=== PATIENT | female | born 1990 | race Caucasian/White ===

== ENCOUNTER 2017-10-21 23:42 | Inpatient (IN) | payer MEDICAID, OTHER ==
[2017-10-21] MEDS ORDERED: Lactated Ringer's 1,000 ML IV SCH (23:45)
[2017-10-21 23:58] VITALS: BMI 36.0
[2017-10-22] MEDS: Lactated Ringer's 1,000 ML IV SCH ×2 (00:14→00:50)
[2017-10-22] MEDS ORDERED: Oxytocin 30 units/LR 500ML 30 UNITS/500 ML BAG IV ONE (00:22)
[2017-10-22] MEDS ORDERED: Oxytocin 20 units in LR 0 ML IV ONE (00:23)
[2017-10-22 00:24] LABS: BASO % 0.1 % (0.0-2.0); EOS % 0.4 % (0.0-4.0); HEMOGLOBIN 11.6 g/dL (12.0-16.0); LYMPH % 18.9 % (20.0-40.0); MEAN CELL VOLUME 74.8 fl (81.0-99.0); MEAN CORPUSCULAR HGB CONC 32.1 g/dL (33.0-37.0); MEAN PLATELET VOLUME 7.9 fl (7.2-11.7); MONO # 0.9 K/uL (0.0-0.8); MONO % 8.2 % (0.0-10.0); NEUT # 7.6 K/uL (1.8-7.0); NEUT % 72.4 % (50.0-75.0); RBC 4.83 Mil/uL (3.80-5.20); RED CELL DISTRIBUTION WIDTH 18.7 % (11.5-14.5); WHITE BLOOD COUNT 10.6 K/uL (4.8-10.8)
[2017-10-22] MEDS ORDERED: Bupivacaine HCl 0.25% PF (10 ml) Inj ONE (00:27)
[2017-10-22] MEDS ORDERED: Fentanyl/Bupivacaine HCl 250 ML EPI ONE (00:27)
[2017-10-22] MEDS ORDERED: Oxytocin 30 units/LR 500ML 30 UNITS/500 ML BAG IV SCH (00:30)
[2017-10-22] MEDS ORDERED: Lidocaine 2% Inj (20ml) ONE (01:37)
[2017-10-22] MEDS ORDERED: Oxytocin 10 Units/ml Inj ONE (01:41)
[2017-10-22] MEDS ORDERED: Benzocaine/Menthol SPRAY TOP PRN ×2 (01:44→04:53)
[2017-10-22] MEDS ORDERED: Oxycodone/Acetaminophen 5/325 mg Tab PO PRN ×4 (01:44→04:53)
--- NOTE | 2017-10-22 02:12 | OBDS ---
DELIVERY PERSONNEL Delivery Doctor: Darnell Remy MD Dude Wrangler: Bert MATERNAL INFORMATION Delivery Anesthesia: Epidural Provider Comments: Precipitous vaginal delivery of live female , followed by shoulders and res t of infant atraumatically, mouth and nose suctioned, cord clamped and cut, placed in warmer, cord blood obtained, placenta delivered spontaneously, 1st degree repaired with 2-0 vicryl rapide, EB [id number] LABOR SUMMARY EDC: 10/28/2017 00:00 No. Babies in Womb: 1 Attempted: No Labor Anesthesia: Epidural LABOR INFORMATION Reason for Induction: Not Applicable Oxytocin: N/A Group B Beta Strep: Negative Steroids Given: None Reason Steroids Not Administered: Not Applicable MEMBRANES Membranes Rupture Method: Spontaneous Rupture of Membranes: 10/22/2017 00:06 Amniotic Fluid Color: Clear Amniotic Fluid Amount: Small Amniotic Fluid Odor: Normal PRESENTATION/POSITION BABY A Presentation: Cephalic
[2017-10-22] MEDS ORDERED: Oxytocin 10 Units/ml Inj IM ONE (02:43)
--- NOTE | 2017-10-22 05:33 | OBADHP ---
Datetime: 10/22/2017 00:00 Admit Comment, IP Provider: CC: CTX HPI: 27 YO @ 39 wks IUP presents to [facility] for ctx. Per patient ctx started a few hrs ago and h as become more intense and more frequent. Rates the pain as a 8/10. No LOF, VB, Good FM. MD: Antoinette ObHx: 2012 GynHx: denies PMH: anemia, hz of seizures (per chart review), consangunity SurgHx: Denies FH: hx of heart disease and seizures SH: denies ETOH, smoking and illict drug use Allergies: NKDA Meds PNV, Iron PE: GEN: distress with ctx Cardio: S1S2 Resp: clear breath sounds b/l Abdomen: Gravid Neuro: AAOx3 Ext: NT, no edema Cervx: /0 A/P: 27 YO @ 39wks IUP is admitted for active labor. GBS neg, HIV neg, RPR neg, GC neg. Onur es epidural. -admit pt -start labor protocal -IV Fluids -blood work -continue FM Pt discussed with Dr. Jonel Bernal, PGY I Addendum by Dr. Remy: I have evaluated the patient independently and I agree with the above Pelvic Type - PN: Adequate Extremities - PN: Normal Abdomen - PN: Normal Back - PN: Not Done Breast - PN: Not Done Lungs - PN: Normal Heart - PN: Normal Thyroid - PN: Not Done Neurologic - PN: Normal HEENT - PN: Normal General - PN: Normal FHR - Baseline A Provider: 160 Membranes, Provider: Intact Vital Signs Provider: Reviewed; Within Normal Limits IP Chief Complaint: Uterine contractions NICHD Variability Prov Fetus A: Moderate 6-25bpm NICHD Accel Fetus A IP Provider: [id number] Dilatation, Provider: 6 Effacement, Provider: 70 Station, Provider: 0 Genitourinary Exam: Not Done DTRs - PN: Not Done EGA AdmitDate IP: 39.0 IP Adm Impression: Term, intrauterine IP Admit Plan: Admit to unit; Initiate labor protocol; Observation/Evaluation
[2017-10-22 09:54] VITALS: TEMP 98.1
[2017-10-22] MEDS: Lansinoh for Breast Feeding Mothers TP SCH (20:25)
[2017-10-23 06:48] LABS: BASO # 0.1 K/uL (0.0-0.2); BASO % 0.5 % (0.0-2.0); EOS # 0.1 K/uL (0.0-0.7); EOS % 0.9 % (0.0-4.0); HEMOGLOBIN 10.3 g/dL (12.0-16.0); LYMPH # 3.3 K/uL (1.0-4.3); LYMPH % 27.1 % (20.0-40.0); MEAN CORPUSCULAR HEMOGLOBIN 24.3 pg (27.0-31.0); MEAN CORPUSCULAR HGB CONC 31.9 g/dL (33.0-37.0); MEAN PLATELET VOLUME 7.9 fl (7.2-11.7); MONO # 0.8 K/uL (0.0-0.8); MONO % 6.8 % (0.0-10.0); NEUT % 64.7 % (50.0-75.0); NRBC % 0.1 % (0.0-0.0); RBC 4.24 Mil/uL (3.80-5.20); RED CELL DISTRIBUTION WIDTH 19.2 % (11.5-14.5); WHITE BLOOD COUNT 12.3 K/uL (4.8-10.8)
[2017-10-23] MEDS: Lansinoh for Breast Feeding Mothers TP SCH (09:03)
--- NOTE | 2017-10-23 14:06 | OBPPN ---
Datetime: 10/23/2017 05:54 PP Pain Prov: Within normal limits PP Nausea Prov: Denies PP Flatus Prov: Yes PP BM Prov: Yes PP Breasts Prov: Not Done PP Heart Prov: Normal PP Lungs Prov: Normal PP Abdomen/Uterus Prov: Normal PP Lochia Prov: Normal PP Vulva/Perineum Prov: Normal PP CVA Tenderness Prov: Not Done PP Extremities Prov: Normal PP C/S Incision Prov: Not Applicable PP Progress Prov: Normal PP Impression Prov: Normal progression PP Plan Prov: Continue present management; Discharge PP Progress Note Prov: S: 27 YO PPD1, s/p NVD on 10/22/17. Pt is seen and examined by bedside thi s AM. No acute overnight events. Pt is endorsing mild abdominal pain but mostly with ambulation. Pain is well controlled with pain meds. Pt is ambulating in the room and to the bathroom without any diff iculties. Bleeding has improved since delivery, like periods now. Tolerating PO diet. + BM and passin g flatus. Pt states that she would like to go home today, if possible. Denies chest pain, dyspnea, n/ v, fever/chills, diarrhea, nausea/vomiting, and calf pain. O: VS: wnl, afebrile GEN: Awake, alert and baby girl by bedside. Sleepy HEENT: EOMI, moist mucosa. LUNGS: CTA B/L, no wheezing, rhonci, or rales CVS: RRR, S1,S2 no murmurs ABD: ND, +BS, soft abdomen, firm fundus, below umbilicus. EXT: No edema, neg calf tenderness NEURO/PSYCHI: AAOx3, no grossly focal deficit, preserved affect and mood. Assessment/Plan: 27 YO PPD1, s/p NVD on 10/22/17, gave to a baby girl. Pt remains afebril e, tolerating pain with medication, good PO intake and urinating without any difficulties. Doing well on PPD1. Desires to go home today. -C/w regular diet as tolerated. -OOB with caution SCDs for DVT prophylaxis -C/w Percocet 5/325 mg and Ibuprofen 600 mg for pain prn -C/w Colace 100mg PO BID -Encourage and ambulating. -pending discharge home today -follow up for PP care in 6 weeks and in 2-3 days for baby. Sarai Bernal, PGY I OB Hospitalist on-call : Pt seen on rounds this morning...agree with note PGY1...will discharge to [facility] Vital Signs Provider PP: Reviewed; Within Normal Limits
--- NOTE | 2017-10-23 14:09 | OBDCSUM ---
Datetime: 10/23/2017 06:01 Discharged to, Provider: Home Follow up at, Provider: 6 wks Disch Instr Activity: Normal activity; May be up to bathroom; May be up for meals; May Shower Disch Instr Diet: Regular Discharge Instructions, Provider: Routine instructions given Discharge Diagnosis, Provider: Term Delivered Follow up in weeks, Provider: Antoinette Contraception discussed, Prov: Yes Disch Activity Restrictions: No exercising; No lifting; No driving; Minimize stair-climbing; No sexu al activity; Nothing in vagina - [place], tampons, douche Discharge Comment, Provider: 27 YO PPD1, s/p NVD. Pt gave to a baby girl, 39.1wks IUP, on 10/22/17 @ 01:23AM. At , with of 8/8 and weight of 3705g. Delivery was complicated by 1st d egree lac which was repaired. No complications during the post- period. Pt is tolerating PO t, pain is well controlled, and ambulating without difficulties. Doing well PP day 1. Discharge Instructions: 1. Encourage and ambulation 2. C/W PNV 1 tab po daily 3. Ibuprofen 600mg 1 tab prn for mild-mod pain and Senokot for constipation. 4. ER precations: If excessive bleeding or fever without relief from medication, go to ED 5. F/U in 6 weeks for PP visit and follow up in 2-3 days for baby. Sarai Bernal, PGY I OB Hospitalist on-call : Pt seen on rounds this morning...agree with note PGY1...will discharge to day [facility] Contraception after Delivery: Undecided
[2017-10-23 21:11] VITALS: BP 111/56; PULSE 74; RESP 18; O2SAT 90
== END 2017-10-23 16:20 | disposition home or self-care (01) | DRG 373 ==
LOC: H.EROB2 23:42 → H.L&D 23:58 → H.OB/GYN 10-22 04:23
PROVIDERS: ADMIT Obstetrics & Gynecology; ATTEND Obstetrics & Gynecology
PROC: 4A1HXCZ Monitoring of Products of Conception, Cardiac Rate, External Approach (ICD-10-PCS; 2017-10-21)
PROC: 10E0XZZ Delivery of Products of Conception, External Approach (ICD-10-PCS; principal; 2017-10-22)
PROC: 0HQ9XZZ Repair Perineum Skin, External Approach (ICD-10-PCS; 2017-10-22)
DX: O62.3 Precipitate labor (principal); O70.0 First degree perineal laceration during delivery; Z37.0 Single live birth; Z3A.39 39 weeks gestation of pregnancy